=== PATIENT | male | born 1965 | race African-American/Black ===

== ENCOUNTER 2016-09-04 18:37 | Emergency (ER) | payer OTHER ==
[~2016-09-04] VITALS: Ht 172.7 cm; Wt 77.5 kg
[2016-09-04 20:51] LABS: BASOPHIL COUNT 0.1 K/uL (0-0.1); EOSINOPHIL (%) 3.9 % (0-5); EOSINOPHIL COUNT 0.5 K/uL (0-0.3); HEMATOCRIT 45.3 % (38.0-50.0); IMMATURE GRANULOCYTE (%) 0.3 % (0.0-0.7); INSTRUMENT ABS NEUTROPHIL CT 7.8 K/uL; LYMPHOCYTE COUNT 2.7 K/uL (1.0-2.8); MCH 27.4 PG (29.0-34.0); MCHC 31.6 G/DL (30.0-36.0); MCV 86.9 FL (86-99); MEAN PLAT.VOLUME 8.9 uM^3 (9.0-12.4); MONOCYTE (%) 7.9 % (3-12); NEUTROPHIL (%) 64.7 % (45-76); NEUTROPHIL COUNT 7.8 K/uL (1.8-6.4); PLATELET COUNT 259 K/uL (156-360); RBC DIS.WIDTH-CV 13.7 % (11.8-14.6); RBC DIS.WIDTH-SD 44.1 % (39-53); RED BLOOD COUNT 5.21 M/uL (4.00-5.50)
[2016-09-04 21:05] LABS: CHLORIDE 111 mEq/L (99-109); POTASSIUM 4.3 mEq/L (3.7-5.4); SODIUM 145 mEq/L (136-147)
[2016-09-04 21:07] LABS: GLUCOSE 85 mg/dL (70-99)
[2016-09-04 21:08] LABS: ANION GAP 9 MEQ/L (2-14)
[2016-09-04 21:10] LABS: GFR ESTIMATE (CALCULATED) > 59 mL/min/; SERUM ETHYL ALCOHOL < 10 mg/dL
[2016-09-04 21:11] LABS: UREA NITROGEN (BUN) 19 mg/dL (9-23)
[2016-09-04 21:12] LABS: TROP-I INTERPRETATION NEGATIVE; TROPONIN-I < 0.01 ng/mL (0.0-0.30)
[2016-09-05 00:13] VITALS: BP 117/76
== END 2016-09-05 00:18 | disposition home or self-care (01) ==
LOC: EME → EDBD 18:37 → EME 09-05 00:18
PROVIDERS: Emergency Medicine
DX: R55 Syncope and collapse (principal); F10.10 Alcohol abuse, uncomplicated; E11.9 Type 2 diabetes mellitus without complications
CPT/HCPCS: 70450; 71010; 80048; 84484; 85025; 93005; 99281; 99285; G0480; J7030

== ENCOUNTER 2016-12-21 22:37 | Emergency (ER) | payer OTHER ==
[~2016-12-21] VITALS: Ht 172.7 cm; Wt 77.0 kg
[2016-12-22 00:33] LABS: MCH 27.4 PG (29.0-34.0); MCHC 31.8 G/DL (30.0-36.0); MCV 86.4 FL (86-99); MEAN PLAT.VOLUME 8.5 uM^3 (9.0-12.4); PLATELET COUNT 213 K/uL (156-360); RBC DIS.WIDTH-SD 44.2 % (39-53); RED BLOOD COUNT 5.21 M/uL (4.00-5.50); WHITE BLOOD COUNT 9.5 K/uL (4.1-10.2)
[2016-12-22 00:42] LABS: CHLORIDE 111 mEq/L (99-109)
[2016-12-22 00:43] LABS: POTASSIUM 3.8 mEq/L (3.7-5.4); SODIUM 147 mEq/L (136-147)
[2016-12-22 00:44] LABS: GLUCOSE 103 mg/dL (70-99)
[2016-12-22 00:46] LABS: ANION GAP 11 MEQ/L (2-14)
[2016-12-22 00:47] LABS: SERUM ETHYL ALCOHOL 268 mg/dL
[2016-12-22 00:48] LABS: GFR ESTIMATE (CALCULATED) > 59 mL/min/
[2016-12-22 00:49] LABS: UREA NITROGEN (BUN) 11 mg/dL (9-23)
[2016-12-22 06:00] VITALS: BP 126/78
== END 2016-12-22 06:06 | disposition home or self-care (01) ==
LOC: EME 22:37
PROVIDERS: Emergency Medicine
DX: F10.129 Alcohol abuse with intoxication, unspecified (principal); E11.9 Type 2 diabetes mellitus without complications; Y90.8 Blood alcohol level of 240 mg/100 ml or more
CPT/HCPCS: 70450; 80048; 85027; 99281; 99284; G0480